=== PATIENT | female | born 2000 | race Two or more races ===

== ENCOUNTER 2025-01-06 14:15 | Inpatient (IN) | payer OTHER ==
[~2025-01-06] VITALS: Ht 154.9 cm; Wt 72.6 kg
[2025-01-13 09:49] VITALS: BP 131/84
[2025-01-13] MEDS ORDERED: PRENATAL TABLE1 EAC1 PO (10:27)
[2025-01-13] MEDS ORDERED: AMPICILLIN SODIUM 2,000 MG VIAL IV ONE (10:30)
[2025-01-13] MEDS ORDERED: RINGERS SOLUTION,LACTATED 1,000 ML IV SCH (10:45)
[2025-01-13 11:26] LABS: HEMATOCRIT 32.5 % (36.0-45.00); HEMOGLOBIN 10.4 g/dL (12.0-15.00); MEAN CELL VOLUME 76.9 fL (80.00-100.00); MEAN CORPUSCULAR HEMOGLOBIN 24.6 pg (27.00-32.0); PLATELET COUNT 303 K/uL (150-450); RED BLOOD COUNT 4.22 M/uL (4.00-6.00); RED CELL DISTRIBUTION WIDTH 14.6 % (11.5-14.5)
[2025-01-13 11:52] LABS: INR < 0.93; PARTIAL THROMBOPLASTIN TIME 26.2 SECONDS (22.0-34.0); PROTHROMBIN TIME 10.2 SECONDS (9.0-11.5)
[2025-01-13] MEDS ORDERED: AMPICILLIN SODIUM 1,000 MG VIAL IV SCH (13:00)
[2025-01-13 15:05] VITALS: BP 108/65
[2025-01-13 17:09] VITALS: BP 122/57
[2025-01-13] MEDS ORDERED: MORPHINE SULFATE 4 MG/ML VIAL IV SCH (17:15)
[2025-01-13] MEDS ORDERED: OXYTOCIN 1,000 ML IV SCH (19:15)
[2025-01-13] MEDS ORDERED: MORPHINE SULFATE 4 MG/ML CARTRIDGE IV PRN (19:15)
[2025-01-13] MEDS ORDERED: METHYLERGONOVINE MALEATE 0.2 MG/ML AMPUL IJ ONE (19:30)
[2025-01-13] MEDS ORDERED: OXYTOCIN 10 UNITS/ML VIAL IV ONE (19:30)
[2025-01-13] MEDS ORDERED: ERYTHROMYCIN BASE OPHT 1GM EACH TUBE OP ONE (19:30)
[2025-01-13 21:35] VITALS: BP 110/74
[2025-01-13 23:08] VITALS: BP 130/77
[2025-01-14 08:08] VITALS: BP 105/69
[2025-01-14] MEDS ORDERED: IBUprofen 400 MG TABLET PO SCH (09:00)
[2025-01-14] MEDS ORDERED: OxyCODONE HCL/APAP UD (PERCOCET) PO PRN (10:30)
[2025-01-14 13:30] LABS: HEMATOCRIT 30.3 % (36.0-45.00); HEMOGLOBIN 9.6 g/dL (12.0-15.00); MEAN CELL VOLUME 75.3 fL (80.00-100.00); MEAN CORPUSCULAR HEMOGLOBIN 23.9 pg (27.00-32.0); MEAN CORPUSCULAR HGB CONC 31.7 g/dl (32.0-36.0); PLATELET COUNT 288 K/uL (150-450); RED BLOOD COUNT 4.02 M/uL (4.00-6.00); RED CELL DISTRIBUTION WIDTH 15.1 % (11.5-14.5)
[2025-01-14] MEDS ORDERED: DOCUSATE SODIUM 100MG CAP PO SCH (17:32)
[2025-01-14 17:51] VITALS: BP 101/65
[2025-01-15 00:33] VITALS: BP 94/61
[2025-01-15 11:20] VITALS: BP 100/66
== END 2025-01-15 13:30 | disposition home or self-care (01) | DRG 788 ==
LOC: LDR 01-13 09:37 → OB/GYN 01-13 19:25
PROVIDERS: Obstetrics & Gynecology; ADMIT Obstetrics & Gynecology Maternal & Fetal Medicine; ATTEND Obstetrics & Gynecology Maternal & Fetal Medicine
PROC: 4A1HXCZ Monitoring of Products of Conception, Cardiac Rate, External Approach (ICD-10-PCS; 2025-01-13)
PROC: 10D00Z1 Extraction of Products of Conception, Low, Open Approach (ICD-10-PCS; principal; 2025-01-13 18:00)
DX: O36.63X0 Maternal care for excessive fetal growth, third trimester, not applicable or unspecified (principal); Z3A.40 40 weeks gestation of pregnancy; Z37.0 Single live birth

== ENCOUNTER 2025-01-09 15:38 | Outpatient (CLI) | payer OTHER | END 2025-01-09 16:46 | disposition home or self-care (01) | LOC: NST 15:38 | PROVIDERS: ATTEND Obstetrics & Gynecology Gynecology | DX: Z3A.39 39 weeks gestation of pregnancy (principal) ==